=== PATIENT | female | born 1985 | race Caucasian/White ===

== ENCOUNTER → 2020-12-08 | Outpatient (CLI) | payer OTHER ==
[2020-12-09 07:11] LABS: HBSAG SCREEN Negative (Negative); RHEUMATOID ARTHRITIS FACTOR <10.0 IU/mL (0.0-13.9)
[2020-12-09 11:15] LABS: HCV AB <0.1 (0.0-0.9); HEP B CORE AB, TOT Negative (Negative)
[2020-12-10 00:09] LABS: CCP ANTIBODIES IGG/IGA 8 units (0-19)
[2020-12-11 06:10] LABS: QUANTIFERON MITOGEN VALUE >10.00 IU/mL (.); QUANTIFERON NIL VALUE 0.69 IU/mL (.); QUANTIFERON TB1 AG VALUE 0.83 IU/mL (.); QUANTIFERON-TB GOLD PLUS Negative (Negative)
== END ==
LOC: LAB 11:23
PROVIDERS: Nurse Practitioner Family
DX: M25.50 Pain in unspecified joint (principal); R76.8 Other specified abnormal immunological findings in serum; D89.9 Disorder involving the immune mechanism, unspecified; Z11.59 Encounter for screening for other viral diseases; Z79.899 Other long term (current) drug therapy; M19.071 Primary osteoarthritis, right ankle and foot
CPT/HCPCS: 36415; 73130; 73630; 82550; 83520; 85652; 86140; 86200; 86431; 86704; 86803; 87340

== ENCOUNTER → 2020-12-29 | Outpatient (CLI) | payer OTHER | LOC: RAD 12:22 | DX: M46.1 Sacroiliitis, not elsewhere classified (principal); L40.50 Arthropathic psoriasis, unspecified | CPT/HCPCS: 72202 ==